=== PATIENT | female | born 2000 | race Caucasian/White ===

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

== ENCOUNTER 2024-11-29 09:42 | Emergency (ER) | payer OTHER ==
[~2024-11-29] VITALS: Ht 154.9 cm; Wt 42.4 kg
[~2024-11-29 09:42] MED LIST changes: +FLUOXETINE HCL10 M1 PO; +OMEPRAZOLE20 MG PO
[2024-11-29] MEDS ORDERED: LATUDA20 MG PO (10:02)
[2024-11-29 10:06] LABS: BLOOD/HGB, URINE LARGE (Negative); KETONE, URINE NEGATIVE (Negative); LEUK ESTERASE, URINE NEGATIVE (negative); NITRITE, URINE NEGATIVE (negative)
[2024-11-29 10:13] LABS: BACTERIA, URINE 1+ /hpf (negative); CASTS, URINE NONE SEEN \\lpf; CRYSTALS, URINE NONE SEEN (0-1+); EPITHELIAL CELLS, URINE SQUAMOUS 3+ /lpf (0-1+); REFLEX CULTURE, URINE No (No)
[2024-11-29 10:14] LABS: BASOPHILS 0.8 % (0.1-1.2); EOSINOPHILS 1.6 % (0.7-5.8); LYMPHOCYTES 15.0 % (19.3-51.7); MCH 27.9 PG (25.6-32.2); MCHC 32.7 g/dL (32.2-35.5); MCV 85.3 fL (79.4-94.8); MONOCYTES 4.4 % (4.7-12.5); NEUTROPHILS 77.9 % (34.0-71.1); RBC 4.77 M/uL (3.93-5.22)
[2024-11-29] MEDS ORDERED: KETOROLAC TROMETHAMINE 15 MG/ML VIAL IV ONE (10:15)
[2024-11-29 10:29] LABS: ALT (SGPT) 13.0 U/L (14-59); AST (SGOT) 13.0 U/L (15-37); GLOMERULAR FILTRATION RATE,EST 114.0 mL/min (>60); PROTEIN, TOTAL 7.9 g/dL (6.4-8.2); UREA NITROGEN 6.0 mg/dL (7-18)
[2024-11-29] MEDS ORDERED: ONDANSETRON ODT4 MG PO (11:09)
[2024-11-29] MEDS ORDERED: PERCOCET 5-3251 EACH PO (11:09)
[2024-11-29] MEDS ORDERED: FLOMAX0.4 MG PO (11:09)
[2024-11-29] MEDS ORDERED: TAMSULOSIN HCL 0.4 MG CAP PO ONE (11:15)
[2024-11-29 11:26] VITALS: BP 120/76
== END 2024-11-29 11:24 | disposition home or self-care (01) ==
LOC: ED 09:42
PROVIDERS: Emergency Medicine
DX: N13.2 Hydronephrosis with renal and ureteral calculous obstruction (principal); E03.9 Hypothyroidism, unspecified; F17.200 Nicotine dependence, unspecified, uncomplicated; Z79.890 Hormone replacement therapy; Z79.899 Other long term (current) drug therapy
CPT/HCPCS: 36415; 74176; 80053; 81001; 84703; 85025; 96374; 96375; 99284-25; J1885; J2405